=== PATIENT | female | born 1990 | race Caucasian/White ===

== ENCOUNTER 2022-08-24 23:45 | Observation (INO) | payer MEDICAID ==
[~2022-08-24] VITALS: Ht 162.6 cm; Wt 94.3 kg
[2022-08-25] MEDS ORDERED: LACTATED RINGERS 1,000 ML IV SCH (00:15)
[2022-08-25] MEDS ORDERED: ONDANSETRON HCL 4MG/2ML INJ IV PRN (00:15)
[2022-08-25] MEDS ORDERED: CITRIC ACID/SODIUM CITRATE SOLN 30ML UDC PO PRN (00:15)
[2022-08-25 00:48] LABS: BASOPHILS % 0.1 % (0.0-2.0); LYMPHOCYTES % 28.2 % (20.0-50.0); MEAN CORPUSCULAR HEMOGLOBIN 30.8 pg (28.0-32.0); MEAN CORPUSCULAR VOLUME 91.9 fL (81.0-99.0); MEAN PLATELET VOLUME 8.7 fl (7.4-10.4); MONOCYTES % 6.8 % (2.0-8.0); NEUTROPHILS % 61.9 % (40.0-76.0); PLATELET 280 x1000/uL (130-400); RED BLOOD CELL COUNT 3.59 mill/uL (4.2-5.4); RED CELL DISTRIBUTION WIDTH 12.2 % (11.6-14.6)
[2022-08-25 00:48] LABS: CLARITY URINE TURBID (CLEAR); COLOR URINE YELLOW (YELLOW); KETONES URINE NEGATIVE (NEGATIVE); LEUKOCYTE ESTERASE URINE 2+ (NEGATIVE); NITRITE URINE NEGATIVE (NEGATIVE); OCCULT BLOOD URINE NEGATIVE (NEGATIVE); PH URINE >=9.0 (4.5-8.0); PROTEIN URINE 1+ (NEGATIVE); SPECIFIC GRAVITY URINE 1.017 (1.005-1.030)
[2022-08-25 01:00] LABS: CHLORIDE 109 mEq/L (98-107)
[2022-08-25] MEDS ORDERED: PNV1TABL76 PO (01:05)
[2022-08-25] MEDS ORDERED: CEFAZOLIN 2,000 MG in DEXT 5% WATER 100 ML IV NR (02:30)
== END 2022-08-25 03:40 | disposition home or self-care (01) ==
LOC: 8 EST LDRP 23:45
PROVIDERS: ADMIT Obstetrics & Gynecology; ATTEND Obstetrics & Gynecology
DX: O26.893 Other specified pregnancy related conditions, third trimester (principal); R10.13 Epigastric pain; Z3A.30 30 weeks gestation of pregnancy; Z79.899 Other long term (current) drug therapy
CPT/HCPCS: 36415; 59025; 76805; 76818; 80053; 81003; 85025; 96361; 96365; G0378; J0690; J2405; J7060; 96360; 99281; J7120; G0379

== ENCOUNTER 2023-08-20 02:55 | Emergency (ER) | payer MEDICAID, OTHER ==
[~2023-08-20] VITALS: Ht 160 cm; Wt 86.0 kg
[~2023-08-20 02:55] MED LIST: PNV1TABL76 PO
[2023-08-20 03:05] VITALS: O2SAT 97
[2023-08-20 04:15] LABS: BASOPHILS % 0.4 % (0.0-2.0); HEMATOCRIT. 34.6 % (36.0-48.0); HEMOGLOBIN. 11.9 g/dL (12.0-16.0); LYMPHOCYTES % 34.5 % (20.0-50.0); MEAN CORPUSCULAR HEMOGLOBIN 31.2 pg (28.0-32.0); MEAN CORPUSCULAR HGB CONC 34.3 g/dL (31.0-37.0); MEAN CORPUSCULAR VOLUME 90.9 fL (81.0-99.0); MEAN PLATELET VOLUME 8.4 fl (7.4-10.4); MONOCYTES % 6.1 % (2.0-8.0); PLATELET 290 x1000/uL (130-400); RED BLOOD CELL COUNT 3.81 mill/uL (4.2-5.4); RED CELL DISTRIBUTION WIDTH 12.5 % (11.6-14.6); WHITE BLOOD COUNT 11.8 x1000/uL (4.5-11.0)
[2023-08-20 04:30] LABS: ALANINE AMINOTRANSFERASE 22 IU/L (10-49); ALBUMIN 4.6 g/dL (3.2-4.8); ASPARTATE AMINOTRANSFERASE 42 IU/L (<34); BILIRUBIN TOTAL 0.7 mg/dL (0.1-1.0); CALCIUM 8.9 mg/dL (8.7-10.4); CARBON DIOXIDE 26 mEq/L (21-32); CHLORIDE 105 mEq/L (98-107); CREATININE 0.8 mg/dL (0.6-1.0); GLUCOSE 117 mg/dL (70-105); POTASSIUM 3.5 mEq/L (3.5-5.1); PROTEIN TOTAL 7.4 g/dL (6.0-8.3); SODIUM 138 mEq/L (136-145); UREA NITROGEN BLOOD 14 mg/dL (9-23)
[2023-08-20] MEDS: MAGNESIUM/ALUMINUM HYDROXIDE/SIMETHICONE 30ML UDC PO STA (04:31)
[2023-08-20] MEDS: PANTOPRAZOLE SODIUM 40 MG/VIAL IV ONE (04:31)
[2023-08-20] MEDS: ONDANSETRON HCL 4MG/2ML INJ IV STA (04:31)
[2023-08-20] MEDS: SODIUM CHLORIDE 0.9% 1,000 ML IV ONE (04:31)
[2023-08-20 04:36] LABS: HCG SCREEN NEGATIVE
[2023-08-20 04:37] LABS: INR 0.9; PROTHROMBIN TIME 10.5 sec (9.6-11.0)
[2023-08-20 04:45] LABS: ETHANOL BLOOD < 10 mg/dL (<10)
[2023-08-20] MEDS ORDERED: NAPR-1129 MT (05:44)
[2023-08-20] MEDS ORDERED: ONDA4TAB50 MT (05:44)
[2023-08-20] MEDS: KETOROLAC 15MG/ML VIAL IV NR (06:07)
[2023-08-20 07:14] VITALS: BP 120/77; PULSE 75; RESP 18; TEMP 98.9
== END 2023-08-20 07:16 | disposition home or self-care (01) ==
LOC: ER 05:04
DX: K80.20 Calculus of gallbladder without cholecystitis without obstruction (principal); Z00.00 Encounter for general adult medical examination without abnormal findings
CPT/HCPCS: 80053; 80320; 84703; 83690; 85025; 85610; 36415; 76705; 96365; 96366; 96375; 99285; J1885; J2405; C9113; J7030; Z7610 ×3; G0480